=== PATIENT | female | born 1990 | race Caucasian/White ===

== ENCOUNTER 2016-09-02 14:17 | Emergency (ER) | payer OTHER ==
[~2016-09-02] VITALS: Ht 177.8 cm; Wt 149.5 kg
[~2016-09-02 14:17] MED LIST: NO MEDS
[2016-09-02 14:57] VITALS: Ht 177.8 cm; Wt 149.5 kg
[2016-09-02 16:36] LABS: ADD SCAN DIFF NO
[2016-09-02 16:39] LABS: BASOPHIL # 0.1 10^3/ul (0.0-0.1); BASOPHILS % 0.5 % (0.0-2.0); EOSINOPHILS # 0.2 10^3/ul (0.0-0.5); EOSINOPHILS % 2.1 % (0.0-7.0); HEMATOCRIT 45.2 % (37.0-47.0); HEMOGLOBIN 15.3 g/dl (12.0-16.0); LYMPHOCYTES % 27.7 % (15.0-51.0); MEAN CORPUSCULAR HEMOGLOBIN 30.1 pg (29.0-33.0); MEAN CORPUSCULAR HGB CONC 33.8 g/dl (32.0-37.0); MEAN CORPUSCULAR VOLUME 88.8 fl (82.0-101.0); MEAN PLATELET VOLUME 10.4 fl (7.4-10.4); MONOCYTE # 0.7 10^3/ul (0.3-0.9); MONOCYTES % 6.7 % (0.0-11.0); NEUTROPHIL # 6.8 10^3/ul (1.6-7.5); NEUTROPHILS % 62.6 % (39.0-77.0); PLATELET COUNT 326 10^3/UL (140-415); RED BLOOD COUNT 5.09 10^6/ul (4.20-5.40); RED CELL DISTRIBUTION WIDTH 11.9 % (11.5-14.5); WHITE BLOOD COUNT 10.8 10^3/ul (4.8-10.8)
[2016-09-02 16:47] LABS: ALBUMIN 4.7 g/dl (3.3-4.9)
[2016-09-02 16:48] LABS: POTASSIUM 3.9 mmol/L (3.5-5.1)
[2016-09-02 16:50] LABS: ALBUMIN/GLOBULIN RATIO 1.34; BILIRUBIN,INDIRECT 0.3 mg/dl (0-1.1); BILIRUBIN,TOTAL 0.3 mg/dl (0.2-1.3); CREATININE 0.58 mg/dl (0.44-1.00); TOTAL PROTEIN 8.2 g/dl (6.1-8.1)
[2016-09-02 16:51] LABS: CALCIUM 9.8 mg/dl (8.4-10.2)
[2016-09-02 17:00] LABS: ADD UMIC YES; URINE BILIRUBIN (Dip) NEGATIVE (NEGATIVE); URINE BLOOD (Dip) TRACE (NEGATIVE); URINE COLOR LT. YELLOW (YELLOW); URINE GLUCOSE (Dip) NEGATIVE (NEGATIVE); URINE KETONES (Dip) NEGATIVE (NEGATIVE); URINE LEUKOCYTE ESTERASE (Dip) NEGATIVE (NEGATIVE); URINE NITRITE (Dip) NEGATIVE (NEGATIVE); URINE TOTAL PROTEIN (Dip) NEGATIVE (NEGATIVE); URINE UROBILINOGEN (Dip) 0.2 E.U./dL (0.1-1.0)
--- NOTE | 2016-09-02 17:02 | RADRPT ---
PROCEDURE: Chest Radiograph. CLINICAL INDICATION: Shortness of breath TECHNIQUE: Single frontal chest radiograph. COMPARISON: Chest radiograph 01/03/2014 FINDINGS: The cardiomediastinal silhouette is within normal limits. No infiltrate or effusion is seen. Th e bones are intact. IMPRESSION: 1. Unremarkable chest radiograph. RPTAT: KK .Manuel Fox MD, MD Date Time Electronically viewed and signed by .Manuel Fox MD, on 09/02/2016 17:02 .B/
[2016-09-02 17:10] LABS: SQUAMOUS EPITHELIAL CELL,UR FEW; URINE RBCS 0-2 /HPF (0)
[2016-09-02] MEDS ORDERED: BENA5TAB2 PO (17:37)
[2016-09-02] MEDS ORDERED: IBUP-1542 PO (17:37)
--- NOTE | 2016-09-02 17:43 | ERD ---
ER Documentation Chief Complaint Date/Time DATE: 09/02/16 TIME: 17:39 Chief Complaint Pt withg SOB, HTN with blurry vision. HPI This 25-year-old presents with multiple complaints over the last month. She was seen at another ER and diagnosed with hypertension and had a CAT scan for blurry vision and headache. The CAT scan was normal. She was initiated on hydrochlorothiazide but states that she is having side effects and it makes her feel weird. She continues complaints of pain in her left side of her chest wall with movement and pressure. She believes she needs an MRI to determine the cause of her symptoms. Her chiropractor also instructed her to have her spleen evaluated. She denies syncope, weakness, bowel or bladder incontinence. Shortness of breath appears to be nonspecific and not related to lying down or activity. ROS All systems reviewed and are negative except as per history of present illness. Medications Home Meds Active Scripts Benazepril Hcl* (Benazepril Hcl*) 5 Mg Tablet, 5 MG PO DAILY, #30 TAB Prov:JUAN M ORDONEZ MD 09/02/16 Ibuprofen* (Motrin*) 600 Mg Tab, 600 MG PO Q6, #20 TAB Prov:JUAN M ORDONEZ MD 09/02/16 Reported Medications [No Meds] No Conflict Check 12/14/13 Allergies Allergies: Coded Allergies: No Known Allergies (Verified Allergy, Mild, 09/02/16) PMhx/Soc History of Surgery: No Hx Neurological Disorder: No Hx Respiratory Disorders: No Hx Cardiac Disorders: Yes (heart problems) Hx Miscellaneous Medical Probl: Yes (SPHEROCYTOSIS) Hx Alcohol Use: Yes (socially) Hx Substance Use: No Hx Tobacco Use: Yes Smoking Status: Current every day smoker Physical Exam Vitals Vital Signs Date Time Temp Pulse Resp B/P Pulse Ox O2 Delivery O2 Flow Rate FiO2 09/02/16 14:57 97.9 82 20 142/92 96 Physical Exam Const: [] Alert, morbidly obese. Head: Atraumatic Eyes: Normal Conjunctiva ENT: Normal External Ears, Nose and Mouth. TMs and oropharynx normal. Neck: Full range of motion..~ No meningismus. Resp: Clear to auscultation bilaterally Cardio: Regular rate and rhythm, no murmurs. Slight reproducible left-sided chest wall pain. Abd: Soft, non tender, non distended. Normal bowel sounds Skin: No petechiae or rashes Back: No midline or flank tenderness Ext: No cyanosis, or edema Neur: Awake and alert Psych: Normal Mood and Affect Result Diagram: 09/02/16 1615 09/02/16 1615 Results 24 hrs Laboratory Tests Test 09/02/16 16:15 09/02/16 16:21 White Blood Count 10.810^3/ul Red Blood Count 5.0910^6/ul Hemoglobin 15.3g/dl Hematocrit 45.2% Mean Corpuscular Volume 88.8fl Mean Corpuscular Hemoglobin 30.1pg Mean Corpuscular Hemoglobin Concent 33.8g/dl Red Cell Distribution Width 11.9% Platelet Count 56276^3/UL Mean Platelet Volume 10.4fl Neutrophils % 62.6% Lymphocytes % 27.7% Monocytes % 6.7% Eosinophils % 2.1% Basophils % 0.5% Nucleated Red Blood Cells % 0.0/100WBC Neutrophils # 6.810^3/ul Lymphocytes # 3.010^3/ul Monocytes # 0.710^3/ul Eosinophils # 0.210^3/ul Basophils # 0.110^3/ul Nucleated Red Blood Cells # 0.010^3/ul Sodium Level 142mmol/L Potassium Level 3.9mmol/L Chloride Level 101mmol/L Carbon Dioxide Level 27mmol/L Anion Gap 18 Blood Urea Nitrogen 7mg/dl Creatinine 0.58mg/dl Glucose Level 91mg/dl Calcium Level 9.8mg/dl Total Bilirubin 0.3mg/dl Direct Bilirubin 0.00mg/dl Indirect Bilirubin 0.3mg/dl Aspartate Amino Transf (AST/SGOT) 21IU/L Alanine Aminotransferase (ALT/SGPT) 35IU/L Alkaline Phosphatase 88IU/L B-Type Natriuretic Peptide 16PG/ML Total Protein 8.2g/dl Albumin 4.7g/dl Globulin 3.50g/dl Albumin/Globulin Ratio 1.34 Urine Color LT. YELLOW Urine Clarity CLEAR Urine pH 6.0 Urine Specific Stewart 1.015 Urine Ketones NEGATIVE Urine Nitrite NEGATIVE Urine Bilirubin NEGATIVE Urine Urobilinogen 0.2 E.U./dL Urine Leukocyte Esterase NEGATIVE Urine Microscopic RBC 0-2/HPF Urine Microscopic WBC 0-2/HPF Urine Squamous Epithelial Cells FEW Urine Hemoglobin TRACE Urine Glucose NEGATIVE% Urine Total Protein NEGATIVE Procedures/MDM EKG: Rate/Rhythm: [Normal Sinus Rhythm] rate equals 83 QRS, ST, T-waves: [No changes consistent w/ acute ischemia] Impression: [No evidence of ischemia or arrhythmia]. Impression-normal EKG CBC and CMP and urine showed no abnormalities. BNP is normal. Patient presents with multiple complaints of uncertain etiology including shortness of breath, intermittent blurry vision, left-sided chest wall pain. Patient shows no signs or symptoms to suggest emergent life-threatening illness. Patient is advised to follow-up with primary doctor. She is attempted to see her primary doctor but her appointment canceled today. The patient was stable with no new complaints during the ER course. Clinically, there is no current evidence to suggest meningitis, sepsis, acute abdomen, pneumonia, acute coronary syndrome, pulmonary embolism, or any other emergent condition appearing to require further evaluation or hospitalization. The patient should certainly return for any new or worsening symptoms per the aftercare instructions. They should otherwise follow-up with her primary care doctor for reevaluation this week. We will switch patient to benazepril 5 mg a day and instructions for recheck of blood pressure with primary doctor. There are no signs or symptoms to suggest endorgan damage to the patient's hypertension. Departure Diagnosis: Primary Impression: Hypertension Hypertension type: essential hypertension Qualified Code: I10 - Essential hypertension Additional Impressions: Shortness of breath Blurry vision Condition: Stable Patient Instructions: Coping with Shortness of Breath: Controlling Stress, Hypertension, New (Begin Treatment), Symptoms With Uncertain Cause Additional Instructions: No emergent conditions identified as cause of symptoms today. EKG and blood work and urine showed no abnormalities. Recommend follow-up with primary care doctor. We will initiate a different type of blood pressure medicine. JUAN M ORDONEZ MD September 02, 2016 17:43
== END 2016-09-02 18:26 | disposition home or self-care (01) ==
LOC: FTE 14:17
DX: I10 Essential (primary) hypertension (principal); H53.8 Other visual disturbances; F17.210 Nicotine dependence, cigarettes, uncomplicated
CPT/HCPCS: 36415; 71010; 80053; 81001; 81003; 83880; 85025; 93005